=== PATIENT | female | born 1995 | race Caucasian/White ===

== ENCOUNTER 2017-04-03 22:07 | Emergency (ER) | payer MEDICAID ==
[~2017-04-03] VITALS: Ht 162.6 cm; Wt 59.8 kg
[2017-04-04] MEDS ORDERED: FAMOTIDINE 20MG/2ML VIAL IV STA (01:34)
[2017-04-04] MEDS ORDERED: ONDANSETRON HCL 4MG/2ML VIAL IV STA (01:34)
[2017-04-04] MEDS ORDERED: VISCOUS LIDOCAINE 2% 15 ML UDC PO STA (01:34)
[2017-04-04] MEDS ORDERED: SODIUM CHLORIDE 0.9% 1,000 ML IV ONE (01:34)
[2017-04-04] MEDS ORDERED: MAGNESIUM/ALUMINUM HYDROXIDE/SIMETHICONE 30ML UDC PO STA (01:34)
[2017-04-04 01:59] LABS: BASOPHILS % 0.1 % (0.0-2.0); EOSINOPHILS % 0.3 % (0.0-5.0); HEMATOCRIT. 39.6 % (36.0-48.0); HEMOGLOBIN. 13.7 g/dL (12.0-16.0); LYMPHOCYTES % 18.2 % (20.0-50.0); MEAN CORPUSCULAR VOLUME 87.1 fL (81.0-99.0); MEAN PLATELET VOLUME 11.1 fl (7.4-10.4); MONOCYTES % 5.3 % (2.0-8.0); NEUTROPHILS % 76.1 % (40.0-76.0); PLATELET 146 x1000/uL (130-400); RED BLOOD CELL COUNT 4.55 mill/uL (4.2-5.4); RED CELL DISTRIBUTION WIDTH 13.4 % (11.6-14.6)
[2017-04-04 02:12] LABS: CHLORIDE 104 mEq/L (98-107)
[2017-04-04 02:13] LABS: INR 1.1; PROTHROMBIN TIME 11.3 sec
[2017-04-04 02:18] LABS: HCG SCREEN POSITIVE
[2017-04-04 02:21] LABS: CARBON DIOXIDE 25 mEq/L (21-32); ETHANOL BLOOD < 10 mg/dL
[2017-04-04 02:35] LABS: CLARITY URINE CLEAR (CLEAR); COLOR URINE YELLOW (YELLOW); GLUCOSE URINE NEGATIVE (NEGATIVE); KETONES URINE 3+ (NEGATIVE); LEUKOCYTE ESTERASE URINE NEGATIVE (NEGATIVE); NITRITE URINE NEGATIVE (NEGATIVE); OCCULT BLOOD URINE NEGATIVE (NEGATIVE); PROTEIN URINE NEGATIVE (NEGATIVE); SPECIFIC GRAVITY URINE 1.014 (1.005-1.030); UROBILINOGEN URINE 0.2 E.U./dL (0.2-1.0)
[2017-04-04 02:52] LABS: *AMPHETAMINES SCREEN URINE NEGATIVE (NEGATIVE); *BARBITURATES SCREEN URINE NEGATIVE (NEGATIVE); *BENZODIAZEPINES SCREEN URINE NEGATIVE (NEGATIVE); CANNABINOID URINE SCREEN NEGATIVE (NEGATIVE); METHADONE URINE SCREEN NEGATIVE (NEGATIVE); OPIATES URINE SCREEN NEGATIVE (NEGATIVE); PHENCYCLIDINE URINE SCREEN NEGATIVE (NEGATIVE)
[2017-04-04 03:39] LABS: *COCAINE SCREEN URINE NEGATIVE (NEGATIVE)
[2017-04-04 04:03] VITALS: BP 114/60
== END 2017-04-04 04:05 | disposition home or self-care (01) ==
LOC: ER 04-04 01:49
DX: O26.891 Other specified pregnancy related conditions, first trimester (principal); R10.84 Generalized abdominal pain; Z3A.01 Less than 8 weeks gestation of pregnancy
CPT/HCPCS: 36415; 80053; 80305; 81003; 83605; 83690; 84703; 85025; 85610; 96361; 96374; 96375; 99285; G0482; J2405; J3490; J7030; Z7610

== ENCOUNTER 2017-05-02 16:59 | Emergency (ER) | payer MEDICAID ==
[~2017-05-02] VITALS: Ht 162.6 cm; Wt 55.0 kg
[2017-05-02] MEDS ORDERED: SODIUM CHLORIDE 0.9% 1,000 ML IV ONE ×2 (21:26→23:22)
[2017-05-02] MEDS ORDERED: ONDANSETRON HCL 4MG/2ML VIAL IV ONE ×2 (21:30→23:30)
[2017-05-02 21:45] LABS: BASOPHILS % 0.2 % (0.0-2.0); EOSINOPHILS % 0.1 % (0.0-5.0); HEMATOCRIT. 42.5 % (36.0-48.0); HEMOGLOBIN. 14.7 g/dL (12.0-16.0); LYMPHOCYTES % 19.9 % (20.0-50.0); MEAN CORPUSCULAR VOLUME 86.5 fL (81.0-99.0); MEAN PLATELET VOLUME 11.7 fl (7.4-10.4); MONOCYTES % 5.7 % (2.0-8.0); NEUTROPHILS % 74.1 % (40.0-76.0); PLATELET 138 x1000/uL (130-400); RED BLOOD CELL COUNT 4.91 mill/uL (4.2-5.4)
[2017-05-02 22:03] LABS: CARBON DIOXIDE 17 mEq/L (21-32); CHLORIDE 104 mEq/L (98-107)
[2017-05-02 22:13] LABS: B-HCG QUANTITATIVE 181656 mIU/mL (<3)
[2017-05-02 23:41] LABS: GLUCOSE URINE NEGATIVE (NEGATIVE); KETONES URINE 4+ (NEGATIVE); LEUKOCYTE ESTERASE URINE NEGATIVE (NEGATIVE); NITRITE URINE NEGATIVE (NEGATIVE); OCCULT BLOOD URINE NEGATIVE (NEGATIVE); PH URINE 5.5 (4.5-8.0); PROTEIN URINE TRACE (NEGATIVE); SPECIFIC GRAVITY URINE 1.028 (1.005-1.030); UROBILINOGEN URINE 0.2 E.U./dL (0.2-1.0)
[2017-05-02 23:47] LABS: CLARITY URINE SL HAZY (CLEAR); COLOR URINE YELLOW (YELLOW)
[2017-05-03 02:48] VITALS: BP 110/55
== END 2017-05-03 02:50 | disposition home or self-care (01) ==
LOC: ER 16:59
DX: O21.0 Mild hyperemesis gravidarum (principal); Z3A.11 11 weeks gestation of pregnancy
CPT/HCPCS: 36415; 76801; 76817; 80053; 81001; 81025; 84702; 85025; 86850; 86900; 86901; 93005; 96361; 96374; 96376; 99285; J2405; J7030; Z7610

== ENCOUNTER 2017-11-19 15:03 | Emergency (ER) | payer MEDICAID ==
[~2017-11-19] VITALS: Ht 160 cm; Wt 55.0 kg
[2017-11-19 17:01] VITALS: BP 147/94
== END 2017-11-19 21:50 | disposition left against medical advice (07) ==
LOC: ER 17:13
DX: R10.9 Unspecified abdominal pain (principal); R11.10 Vomiting, unspecified; Z53.21 Procedure and treatment not carried out due to patient leaving prior to being seen by health care provider